=== PATIENT | male | born 1965 | race Caucasian/White ===

== ENCOUNTER → 2016-11-16 | Emergency (ER) | payer BC ==
[~2016-11-16] MED LIST: ACTOS15 MG PO; ACTOS45 MG PO; AMBIEN10 MG PO; AMBIEN5 MG PO; CLEOCIN300 MG PO; CYMBALTA60 MG PO; Cleocin PO; GABAPENTIN300 M1 PO; GLIPIZIDE10 M1 PO; GLIPIZIDE5 M1 PO; GLUCOPHAGE XR1000 MG PO; GLUCOPHAGE1000 MG PO; GLUCOSE4 GM PO; Glucotrol PO; LOSARTAN POTASS25 MG PO; NEURONTIN300 MG PO; NUCYNTA50 MG PO; ONGLYZA5 MG PO; PRAVACHOL10 MG PO; PRAVASTATIN SOD20 MG PO; SKELAXIN800 MG PO; VALIUM5 MG PO; VICTOZA0.6 MG/0.1 SC; Victoza SC; ZANAFLEX4 M1 PO; ZOLOFT100 MG PO; ZOLOFT50 MG PO
[2016-11-16 15:04] LABS: CREATININE 1.9 mg/dL (0.6-1.3); POTASSIUM 5.3 mEq/L (3.7-5.4)
== END ==
LOC: EME 14:43
PROVIDERS: Emergency Medicine
DX: I46.9 Cardiac arrest, cause unspecified (principal); E11.9 Type 2 diabetes mellitus without complications; Z79.84 Long term (current) use of oral hypoglycemic drugs
CPT/HCPCS: 80047; 80048; 81003; 82150; 83605; 83690; 84484; 85025; 85610; 85730; 86900; 86901; 87040; 99281; 99285; G0480; J0282; J2310